=== PATIENT | female | born 1945 | race Asian ===

== ENCOUNTER 2020-08-05 10:46 | Inpatient (IN) | payer OTHER, MEDICARE, SELFPAY ==
[~2020-08-05] VITALS: Ht 152.4 cm; Wt 47.9 kg
[2020-08-05 10:46] VITALS: BP_SYST 103
--- NOTE | 2020-08-05 10:50 | NUR ---
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
--- NOTE | 2020-08-05 10:55 | NUR ---
PT STATES SHE AWOKE TODAY AND DID NOT FEEL RIGHT, BUT PT STATES SHE STARTED TO DRIVE OVER TO [place]. PT STATES BY THE TIME SHE GOT THERE SHE WAS DIZZY AND WEAK. STATES SHE FEELS A LITTLE BETTER RIGHT NOW
--- NOTE | 2020-08-05 11:30 | NUR ---
Patient to ER bed 2 to gown for evaluation. Side rails up. Report given to siria ALLEN.
--- NOTE | 2020-08-05 11:35 | NUR ---
Patient presented to ER C/O Near syncope. Patient BIB BLS afebrile, skin pink & warm, denies N/V/D, denies pain. Patient reports feeling dizzy & weak while was driving. after arriving at sons home, ems called. PT brought to ER.
--- NOTE | 2020-08-05 11:52 | NUR ---
ER Dr. Weiss at bedside examining patient.
--- NOTE | 2020-08-05 12:10 | NUR ---
Report to Arpita ALLEN
--- NOTE | 2020-08-05 12:25 | NUR ---
Pt ambulated to bathroom, well tolerated
[2020-08-05 12:37] LABS: BASOPHILS % (AUTO) 0.3 % (0.0-2.0); EOSINOPHILS # (AUTO) 0.1 K/uL (0.0-0.4); EOSINOPHILS % (AUTO) 0.5 % (0.0-4.0); HEMATOCRIT 39.2 % (36-48); HEMOGLOBIN 13.2 g/dL (12.0-16.0); LYMPHOCYTES % (AUTO) 8.1 % (20.5-51.5); MEAN CORPUSCULAR HEMOGLOBIN 33 pg (27-31); MEAN CORPUSCULAR HGB CONC 34 % (32-36); MEAN CORPUSCULAR VOLUME 97 fL (79.0-98.0); MONOCYTES # (AUTO) 0.7 K/uL (0.0-1.0); MONOCYTES % (AUTO) 5.4 % (1.7-9.3); NEUTROPHILS # (AUTO) 10.3 K/uL (1.8-7.7); NEUTROPHILS % (AUTO) 85.7 % (40.0-70.0); PLATELET COUNT (AUTO) 239 K/uL (130-430); RED BLOOD CELL COUNT(AUTO) 4.03 MIL/uL (4.2-6.2); RED CELL DISTRIBUTION WIDTH 13.6 % (9.0-15.0)
--- NOTE | 2020-08-05 12:54 | NUR ---
Water given to patient as ordered by Dr Weiss
[2020-08-05 13:08] LABS: ANION GAP 8 (5-15); CALCIUM 8.8 mg/dL (8.4-11.0); CHLORIDE 105 mmol/L (98-107); CREATININE 0.89 mg/dL (0.55-1.30); GLUCOSE 115 mg/dL (70-99); POTASSIUM 3.2 mmol/L (3.5-5.1); SODIUM SERUM 142 mmol/L (136-145); UREA NITROGEN, BLOOD 21 mg/dL (8-21)
[2020-08-05 13:13] LABS: ALANINE AMINOTRANSFERASE 29 U/L (12-78); ALBUMIN 3.8 g/dL (3.4-4.8); ASPARTATE AMINOTRANSFERASE 28 U/L (10-37)
[2020-08-05] MEDS ORDERED: POTASSIUM CHLORIDE 20 MEQ/PKT PACKET PO ONE (13:15)
--- NOTE | 2020-08-05 14:15 | NUR ---
Patient sitting up in [facility], requesting update from ER .
--- NOTE | 2020-08-05 15:00 | NUR ---
ER Dr. Weiss at bedside discussing results patient.
[2020-08-05] MEDS ORDERED: ACETAMINOPHEN 325 MG TABLET PO PRN (15:30)
[2020-08-05] MEDS ORDERED: LORazepam 2 MG/ML VIAL IVP PRN (15:30)
[2020-08-05] MEDS ORDERED: HYDROcodone/ACETAMIN 10-325 MG TAB PO PRN (15:30)
[2020-08-05] MEDS ORDERED: ONDANSETRON HCL 4 MG/2 ML VIAL IVP PRN (15:30)
[2020-08-05] MEDS ORDERED: NALOXONE HCL 0.4 MG/ML AMP (NARCAN) IVP PRN ×2 (15:30)
[2020-08-05] MEDS ORDERED: HYDROcodone/ACETAMIN 5-325 MG TAB (NORCO/ VICODIN) PO PRN (15:30)
[2020-08-05] MEDS ORDERED: NOR10 PO (17:26)
[2020-08-05] MEDS ORDERED: LOSA50TA3 PO (17:26)
[2020-08-05] MEDS ORDERED: APIX5TAB4 PO (17:26)
[2020-08-05] MEDS ORDERED: PRAV40TA PO (17:26)
[2020-08-05] MEDS ORDERED: CARV10CP7 PO (17:26)
[2020-08-05] MEDS ORDERED: CARV6.2554 PO (17:26)
--- NOTE | 2020-08-05 17:30 | NUR ---
Dinner tray brought to patient BS. PT A&Ox4
--- NOTE | 2020-08-05 19:09 | NUR ---
Report to Terese ALLEN
--- NOTE | 2020-08-05 19:10 | NUR ---
RECEVIED REPORT TIFFANY NEVES FOR CONTINUATION OF CARE.
--- NOTE | 2020-08-05 20:03 | NUR ---
Patient will be admitted to care of DR. MORENO. Admitted to TELE unit. Will go to room 116B. Belongings list completed. Complete and up to date summary report printed. SBAR report to be given at bedside with opportunity for questions.
--- NOTE | 2020-08-05 20:04 | NUR ---
Transfer to TELE via ACLS protocol. Licensed nurse present. IV present no signs or symptoms of infiltration.
[2020-08-05 20:15] VITALS: BP_SYST 143
--- NOTE | 2020-08-05 20:15 | NUR ---
pt.arrived via the er-dept.pt.presents admit dx;syncope.v/s assessed values w/in normal limits.pt.presents no c/o pain,nausea,dizziness.pt.dose not require o2 therapy.pt.presents iv access location lt.antecubital iv lock.pt.capable to reposition self/ambulate.general status stable.respiratory status stable;unlabored.call light/telephone presented to the pt.demonstration provided to the pt.return demonstration per pt.satisfactory.call light/telephone placed w/in access of the pt.
[2020-08-05 20:30] VITALS: BP_SYST 143
--- NOTE | 2020-08-05 21:00 | NUR ---
pt.assessed.no c/o pain,nausea,dizziness.i have apprised to the pt.that snacks/beverages are available w/in the shift. pt.requested jello/tea.i have provided the food items.i have applied an iv access extension to the extant iv lock.reasoning conveyed to the pt.general status stable.respiratory status stable;unlabored.pt.capable to reposition self.call light/telephone w/in access of the pt.
[2020-08-05] MEDS: NORMAL SALINE 5 ML DISP.SYRIN IVF SCH ×2 (22:00)
--- NOTE | 2020-08-05 22:00 | NUR ---
pt.assessed.pt.presents quiescent affect;calm,somnolent.per flacc pain mgx pt.absent facial grimaces/body posturing. general status stable.respiratory status stable;unlabored.pt.capable to reposition self.call light/telephone w/in access of the pt.
[2020-08-06] VITALS: BP_SYST 134
--- NOTE | 2020-08-06 | NUR ---
pt.assessed.v/s assessed values w/in normal limits.no c/o pain,nausea.no requests posited@this hour.general status stable. respiratory status stable;unlabored.pt.had utilized the restroom/returned to bed unassisted.call light/telephone w/in access of the pt.
--- NOTE | 2020-08-06 01:59 | NUR ---
Consultation Paged Reason for Consultation: Syncope Was consult called: Y Person who was notified: Mary Consulting Physician: Javy Alvarez Ordering Physician: César Alvarez
--- NOTE | 2020-08-06 02:00 | NUR ---
pt.assessed pt.presents quiescent affect;calm,somnolent.per flacc pain mgx pt.absent facial grimaces/body posturing.pt.capable to reposition self.general status stable.respiratory status stable;unlabored.call light/telephone w/in access of the pt.
--- NOTE | 2020-08-06 04:00 | NUR ---
pt.assessed.pt.presents quiescent affect;calm,somnolent.per flacc pain mgx pt.absent facial grimaces/body posturing. general status stable.respiratory status stable;unlabored.pt.capable to reposition self.call light/telephone w/in acces of the pt.
--- NOTE | 2020-08-06 05:30 | NUR ---
Consultation Paged Reason for Consultation: Syncope Was consult called: Y Person who was notified: Dr. Ashley through text message Consulting Physician: Rayo Panchal Ordering Physician: Yamile Alvarez
--- NOTE | 2020-08-06 06:30 | NUR ---
pt.assessed.pt.presents quiescent affect;calm,somnolent.per flacc pain mgx pt.absent facial grimaces/body posturing. pt capable to reposition self.general status stable.respiratory status stable;unlabored.call light/telephone w/in access of the pt.
[2020-08-06 06:48] LABS: BASOPHILS # (AUTO) 0.1 K/uL (0.0-0.2); EOSINOPHILS # (AUTO) 0.2 K/uL (0.0-0.4); EOSINOPHILS % (AUTO) 2.6 % (0.0-4.0); HEMATOCRIT 36.5 % (36-48); HEMOGLOBIN 12.3 g/dL (12.0-16.0); LYMPHOCYTES # (AUTO) 1.3 K/uL (1.0-5.5); LYMPHOCYTES % (AUTO) 22.2 % (20.5-51.5); MEAN CORPUSCULAR HEMOGLOBIN 33 pg (27-31); MEAN CORPUSCULAR HGB CONC 34 % (32-36); MEAN CORPUSCULAR VOLUME 97 fL (79.0-98.0); MONOCYTES # (AUTO) 0.5 K/uL (0.0-1.0); MONOCYTES % (AUTO) 8.6 % (1.7-9.3); NEUTROPHILS # (AUTO) 3.9 K/uL (1.8-7.7); NEUTROPHILS % (AUTO) 65.6 % (40.0-70.0); PLATELET COUNT (AUTO) 215 K/uL (130-430); RED BLOOD CELL COUNT(AUTO) 3.75 MIL/uL (4.2-6.2); RED CELL DISTRIBUTION WIDTH 13.4 % (9.0-15.0)
[2020-08-06 07:19] LABS: ANION GAP 6 (5-15); CALCIUM 8.4 mg/dL (8.4-11.0); CHLORIDE 108 mmol/L (98-107); CREATININE 0.66 mg/dL (0.55-1.30); GLUCOSE 100 mg/dL (70-99); PHOSPHORUS 3.2 mg/dL (2.7-4.5); POTASSIUM 3.5 mmol/L (3.5-5.1); SODIUM SERUM 142 mmol/L (136-145); THYROID STIMULATING HORMONE 0.65 uIu/mL (0.36-3.74); UREA NITROGEN, BLOOD 13 mg/dL (8-21)
[2020-08-06 08:45] VITALS: BP_SYST 145
--- NOTE | 2020-08-06 08:45 | NUR ---
Opening note patient resting in bed, a/xo4, denies pain, assessment complete, IV line is patent no s/s of infiltration, educated patient distribution tech light system and plan of care, she verbalized understanding, continuing to monitor, bed in lowest position, two side rails up, call light within reach, fall and aspiration precautions in place.
[2020-08-06] MEDS ORDERED: CARVEDILOL 12.5 MG TABLET (COREG) ONE (08:47)
[2020-08-06] MEDS: APIXABAN 2.5 MG TABLET PO SCH ×2 (08:48→21:34)
[2020-08-06] MEDS: CARVEDILOL 12.5 MG TABLET (COREG) PO SCH (08:49)
[2020-08-06] MEDS: LOSARTAN POTASSIUM 50 MG TABLET (COZAAR) PO SCH (08:49)
--- NOTE | 2020-08-06 08:50 | NUR ---
RN rounds/Medication patient resting in bed, awake, denies pain, educated patient on scheduled medications uses and potential side effects, she verbalized understanding and tolerated well, patient is anxious about Echocardiogram and inquiring when it will be, called Cardiopulmonary and automatic equipment technician is in ICU at this time, and will be available in about 1 hour, informed that patient and patient verbalized understanding at this time, no other needs at this time, bed in lowest position, two side rails up, call light within reach, fall and aspiration precautions in place.
--- NOTE | 2020-08-06 10:45 | NUR ---
RN rounds patient resting in bed, awake, denies pain, no signs of distress, patient had carotid US done and pending Echocardiogram, patient has no other needs at this time, bed in lowest position, two side rails up, call light within reach, fall and aspiration precautions in place, IV line is patent no s/s of infiltration.
--- NOTE | 2020-08-06 11:40 | NUR ---
RN rounds patient resting in bed, awake, denies pain, provided with more water per request, no other needs at this time, bed in lowest position, two side rails up, call light within reach, fall and aspiration precautions in place.
[2020-08-06 12:05] LABS: CHOLESTEROL 219 mg/dL (<200); HDL CHOLESTEROL 63 mg/dL (>55); LDL CHOLESTEROL 124 mg/dL (<100); TRIGLYCERIDES 169 mg/dL (30-150)
[2020-08-06 12:26] VITALS: BP_SYST 130
--- NOTE | 2020-08-06 12:54 | NUR ---
Follow up with Echo/RN rounds patient resting in bed chair at bedside, denies pain, no signs of distress, informed patient that [employer] will come soon to do her echocardiogram, the patient verbalized understanding at this time, no other needs at this time, bed in lowest position, two side rails up, call light within reach, fall and aspiration precautions in place. Addendum: 08/06/20 at 1319 by Ludwin Adams RN According to charge nurse Costa, echo was done already.
--- NOTE | 2020-08-06 13:55 | NUR ---
INFORMED RN JUAN DANIEL THAT PT IS OFF MONITOR.
[2020-08-06] MEDS: NORMAL SALINE 5 ML DISP.SYRIN IVF SCH ×4 (14:00→21:36)
--- NOTE | 2020-08-06 14:01 | NUR ---
TIFFANY rounds RN aware that patient is off of the earth sciences professor, patient is actually getting her Echocardiogram at this time, patient is tolerating well overall, continuing to monitor the patient and will replace earth sciences professor once Echo is complete. Addendum: 08/06/20 at 1408 by Ludwin Adams RN EF is 63% at this time. Addendum: 08/06/20 at 1409 by Ludwin Adams RN Put Telemetry leads back on, Board Setter Kaley aware.
--- NOTE | 2020-08-06 16:22 | NUR ---
RN rounds patient resting in bed, awake, denies pain, patient inquiring about her medication schedule, answered her questions about her medication, she verbalized understanding, provided patient with ice water, no other needs at this time, bed in lowest position, two side rails up, call light within reach, fall and aspiration precautions in place, continuing to monitor.
[2020-08-06 16:25] VITALS: BP_SYST 140
--- NOTE | 2020-08-06 17:06 | NUR ---
RN rounds patient resting in bed, awake, asking for her evening BP medication, educated on blood pressure medication uses and potential side effects, she verbalized understanding and tolerated well, continuing to monitor, bed in lowest position, two side rails up, call light within reach, fall and aspiration precautions in place.
[2020-08-06] MEDS ORDERED: amLODIPine BESYLATE 10 MG TABLET PO SCH (18:00)
--- NOTE | 2020-08-06 18:25 | NUR ---
Closing note patient resting in bed, awake, denies pain, no signs of distress, all needs met, will endorse report to NOC shift nurse, bed in lowest position, two side rails up, call light within reach, fall and aspiration precautions in place.
--- NOTE | 2020-08-06 19:45 | NUR ---
INITIAL NOTE AT INITIAL ASSESSMENT, PATIENT IS RESTING IN BED, STABLE, NO SIGNS OF RESPIRATORY DISTRESS. PATIENT VERBALIZES NO PAIN. PLAN OF CARE FOR THE EVENING IS COMMUNICATED WITH THE PATIENT. PATIENT DEMONSTRATES CORRECT USAGE OF CALL LIGHT AT THIS TIME. BED IS LOCKED, ALARMED, AND AT THE LOWEST LEVEL. FALL SAFETY EDUCATION PROVIDED. FALL, SAFETY, AND RESPIRATORY PRECAUTIONS WILL BE TAKEN THROUGHOUT THE SHIFT.
[2020-08-06 19:55] VITALS: BP_SYST 117
[2020-08-06] MEDS ORDERED: ATORVASTATIN 10 MG TABLET PO SCH (21:00)
[2020-08-06] MEDS ORDERED: CARVEDILOL 6.25 MG TABLET (COREG) PO SCH (21:00)
--- NOTE | 2020-08-06 21:45 | NUR ---
MED PASS NOTE SCHEDULED MEDICATIONS GIVEN AT THIS TIME, PATIENT TOLERATED WELL. CALL LIGHT IS PLACED WITHIN REACH. BED IS LOCKED, ALARMED, AND AT THE LOWEST LEVEL.
--- NOTE | 2020-08-06 23:45 | NUR ---
NOTE PATIENT IS SLEEPING, STABLE, NO SIGNS OF RESPIRATORY DISTRESS. CALL LIGHT IS WITHIN REACH. BED IS LOCKED, ALARMED, AND AT THE LOWEST LEVEL.
[2020-08-07 00:12] VITALS: BP_SYST 125
--- NOTE | 2020-08-07 01:45 | NUR ---
NOTE PATIENT IS SLEEPING, STABLE, NO SIGNS OF RESPIRATORY DISTRESS. CALL LIGHT IS WITHIN REACH. BED IS LOCKED, ALARMED, AND AT THE LOWEST LEVEL.
--- NOTE | 2020-08-07 03:45 | NUR ---
NOTE PATIENT IS SLEEPING, STABLE, NO SIGNS OF RESPIRATORY DISTRESS. CALL LIGHT IS WITHIN REACH. BED IS LOCKED, ALARMED, AND AT THE LOWEST LEVEL.
--- NOTE | 2020-08-07 04:55 | NUR ---
NOTE PATIENT IS SLEEPING, STABLE, NO SIGNS OF RESPIRATORY DISTRESS. CALL LIGHT IS WITHIN REACH. BED IS LOCKED, ALARMED, AND AT THE LOWEST LEVEL.
[2020-08-07] MEDS: NORMAL SALINE 5 ML DISP.SYRIN IVF SCH ×4 (06:00→14:03)
--- NOTE | 2020-08-07 06:50 | NUR ---
CLOSING NOTE PATIENT SLEPT WELL THROUGHOUT THE SHIFT, NO SHORTNESS OF BREATH NOTED, NO DIZZINESS, NO CHEST PAIN. AT THIS TIME, PATIENT IS RESTING IN BED, STABLE, NO SIGNS OF RESPIRATORY DISTRESS. CALL LIGHT IS WITHIN REACH. BED IS LOCKED, ALARMED, AND AT THE LOWEST LEVEL. FALL, SAFETY, AND RESPIRATORY PRECAUTIONS HAVE BEEN TAKEN THROUGHOUT THE SHIFT. WILL CONTINUE TO MONITOR UNTIL SHIFT REPORT IS GIVEN AT BEDSIDE TO AM NURSE.
[2020-08-07 07:07] LABS: BASOPHILS % (AUTO) 0.8 % (0.0-2.0); EOSINOPHILS # (AUTO) 0.2 K/uL (0.0-0.4); EOSINOPHILS % (AUTO) 2.9 % (0.0-4.0); HEMATOCRIT 36.7 % (36-48); HEMOGLOBIN 12.4 g/dL (12.0-16.0); LYMPHOCYTES # (AUTO) 1.2 K/uL (1.0-5.5); LYMPHOCYTES % (AUTO) 20.9 % (20.5-51.5); MEAN CORPUSCULAR HEMOGLOBIN 33 pg (27-31); MEAN CORPUSCULAR HGB CONC 34 % (32-36); MEAN CORPUSCULAR VOLUME 97 fL (79.0-98.0); MONOCYTES # (AUTO) 0.6 K/uL (0.0-1.0); MONOCYTES % (AUTO) 10.3 % (1.7-9.3); NEUTROPHILS # (AUTO) 3.9 K/uL (1.8-7.7); NEUTROPHILS % (AUTO) 65.1 % (40.0-70.0); PLATELET COUNT (AUTO) 217 K/uL (130-430); RED CELL DISTRIBUTION WIDTH 13.3 % (9.0-15.0)
[2020-08-07 08:00] VITALS: BP_SYST 125
--- NOTE | 2020-08-07 08:00 | NUR ---
Opening Notes Patient is awake, alert and oriented x4. No resp distress noted. Breathing is even and unlabored. Pt denies any pain at this time. Pt denies any dizziness at this time as well. IV site on left AC, 22 gauge intact at this time, saline lock. Flushing well, dressing clean and dry. Pt denies any NVD, cough or abnormal bleeding. Pt is ambulatory, steady gait. Pt was educated that she is scheduled for an EEG and CT of the head today. Pt aware and agreed. Per patient, "I want to go home, can we ask the doctor if I can go home today?" Will follow up with Dr. Abad. All needs met. Safety and fall precautions in place. Bed in lowest position, locked. Will continue to monitor.
[2020-08-07 08:07] LABS: ANION GAP 6 (5-15); CALCIUM 8.6 mg/dL (8.4-11.0); CHLORIDE 106 mmol/L (98-107); CREATININE 0.67 mg/dL (0.55-1.30); GLUCOSE 91 mg/dL (70-99); POTASSIUM 3.8 mmol/L (3.5-5.1); SODIUM SERUM 142 mmol/L (136-145); UREA NITROGEN, BLOOD 14 mg/dL (8-21)
[2020-08-07] MEDS: CARVEDILOL 12.5 MG TABLET (COREG) PO SCH (08:40)
[2020-08-07] MEDS: LOSARTAN POTASSIUM 50 MG TABLET (COZAAR) PO SCH (08:40)
[2020-08-07] MEDS: APIXABAN 2.5 MG TABLET PO SCH (08:41)
--- NOTE | 2020-08-07 09:00 | NUR ---
EEG being performed at bedside.
--- NOTE | 2020-08-07 09:45 | NUR ---
TRANSFERRED TO RADIOLOGY FOR CT SCAN
--- NOTE | 2020-08-07 10:22 | NUR ---
Notes Patient is still currently in the middle of the EEG. NO resp distress, no signs of pain. Will continue to monitor.
[2020-08-07 11:36] VITALS: BP_SYST 143
--- NOTE | 2020-08-07 12:45 | NUR ---
Notes Patient is sitting at the edge of her bed and on her phone. No resp distress noted. Breathing is even and unlabored. No signs of pain at this time. Will continue to monitor.
[2020-08-07 12:52] VITALS: BP_SYST 126
--- NOTE | 2020-08-07 13:30 | NUR ---
Patient is being seen and examined by DR. MORENO
--- NOTE | 2020-08-07 14:03 | NUR ---
Notes Patient is ambulating in her room, steady gait. Patient denies any pain at this time. No resp distress. Awaiting dictation on CT scan for discharge. Will continue to monitor.
[2020-08-07 15:34] VITALS: BP_SYST 126
--- NOTE | 2020-08-13 14:43 | NUR ---
Discharge Follow Up Call: DIVISION MERCHANDISE MANAGER phoned pt @ [phone] who stated she is doing "fine". Pt stated she has made a follow up appointment with Dr. Ashley early in August and no questions/concerns about the discharge instructions. No further SS call needed at this time.
== END 2020-08-07 18:04 | disposition home or self-care (01) | DRG 880 ==
LOC: SED 10:46 → STU 14:51
PROVIDERS: ADMIT Preventive Medicine Preventive Medicine/Occupational Environmental Medicine; ATTEND Preventive Medicine Preventive Medicine/Occupational Environmental Medicine
PROC: 4A00X4Z Measurement of Central Nervous Electrical Activity, External Approach (ICD-10-PCS; principal; 2020-08-07)
DX: F41.9 Anxiety disorder, unspecified (principal); I43 Cardiomyopathy in diseases classified elsewhere; I50.20 Unspecified systolic (congestive) heart failure; D72.829 Elevated white blood cell count, unspecified; E87.6 Hypokalemia; R73.9 Hyperglycemia, unspecified; E78.2 Mixed hyperlipidemia; I11.9 Hypertensive heart disease without heart failure; Z20.828 Contact with and (suspected) exposure to other viral communicable diseases; Z95.0 Presence of cardiac pacemaker; Z88.8 Allergy status to other drugs, medicaments and biological substances; I11.0 Hypertensive heart disease with heart failure
CPT/HCPCS: 36415; 70450-TC; 71045; 76376; 80048; 80053; 80061; 83735-TC; 84100-TC; 84443-TC; 84484; 85025; 93005; 93306; 93880; 95816; 99291; G0378